=== PATIENT | female | born 1985 | race Hispanic/Latino ===

== ENCOUNTER 2024-07-14 02:41 | Emergency (ER) | payer SELFPAY ==
[2024-07-14 02:56] VITALS: BP 115/79; BMI 35.2
[2024-07-14 03:07] LABS: % Basophils 0.4 % (0-2); % Eosinophils 1.1 % (0-6); % Immature Granulocytes 0.3 % (0-0.5); % Lymphocytes 36.5 % (20.5-51.1); % Monocytes 5.8 % (1.7-9.3); % Neutrophils 55.9 % (42.2-75.2); Absolute Eosinophils 0.1 10^3/uL (0-0.7); Absolute Lymphocytes 2.7 10^3/uL (1.2-3.4); Absolute Monocytes 0.4 10^3/uL (0.1-0.6); Absolute Neutrophils 4.1 10^3/uL (1.4-6.5); Hematocrit 36.2 % (37.0-47.0); Hemoglobin 12.7 g/dL (12.0-16.0); Mean Corp Hgb Conc. 35.1 g/dL (33.0-37.0); Mean Corpuscular Hgb 31.5 pg (27.0-31.0); Mean Corpuscular Volume 89.8 fL (81.0-99.0); Mean Platelet Volume 8.8 fL (7.4-10.4); Nucleated Red Blood Cells % 0 %; Platelet Count 292 10^3/uL (130-400); Red Blood Cell Count 4.03 10^6/uL (4.20-5.40); Red Cell Dist. Width 14.2 % (11.5-14.5); White Blood Cell Count 7.4 10^3/uL (4.8-10.8)
[2024-07-14 03:26] LABS: ALT (SGPT) 22 U/L (0-35); AST (SGOT) 20 U/L (14-36); Albumin 4.7 g/dl (3.5-5.0); Alkaline Phosphatase 108 U/L (38-126); Blood Urea Nitrogen 9 mg/dl (7-17); Calcium 9.1 mg/dl (8.4-10.2); Carbon Dioxide 20 mmol/L (22-30); Chloride 113 mmol/L (98-107); Estimated Creatinine Clearance 58 ml/min; Glucose 109 mg/dl (70-99); Potassium 3.6 mmol/L (3.5-5.1); Sodium 143 mmol/L (135-145); Total Bilirubin 0.3 mg/dl (0.2-1.3); Total Protein 7.7 g/dl (6.3-8.2); eGFR > 60.00
[2024-07-14 03:34] LABS: HCG, Serum Qualitative Screen Negative
--- NOTE | 2024-07-14 03:42 | ED.GENMED ---
History of Present Illness
General
Chief Complaint: Crisis Evaluation
Source: patient and other (enterprise services manager)
Exam Limitations: other (Mentally ill Latvian-speaking)
Time Seen by Provider: 07/14/24 02:51
Nursing documentation reviewed up to this point in time: agreed with
History of Present Illness
History of Present Illness:
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
power operator, no alcohol no drugs does have a history of mental illness
From records from EMS patient was apparently discharged from [facility] under 302 today, discharged from a facility in [place] 4 months ago
Past History
Past History
ED Past Medical History: Psychiatric
Social History
Tobacco: Non-smoker
Alcohol: None
Drug: None
Personal:
Living: with family
Employment: Not employed
Review of Systems
Review of Systems
All Other Systems: Not applicable
Phy Exam
Physical Exam
Physical Exam:
Physical Exam
General: Small statured female cooperative does not appear intoxicated
Neck: No jaundice
Heart: s1/s2 regular rate and rhythm, no murmur. equal radial pulses.
Lungs: no acute respiratory distress. clear bilaterally
Abdomen: Not tender
Neuro: alert and oriented. Answer simple questions
Skin: no rash
Psychiatric: Flat affect cooperative
Extremities: no edema.
Course
Orders/Labs/Results
Orders:
Orders
07/14/24 02:48
Complete Blood Count/With Diff Urgent
Comprehensive Metabolic Panel Urgent
HCG, Serum Qualitative Screen Urgent
Comment: ADD ON
07/14/24 03:04
Add On- LAB Urgent
Tests Added?: hcg serum qual
Abnormal Lab Results
07/14/24
02:48
RBC 4.03 L 10^6/uL
(4.20-5.40)
Hct 36.2 L %
(37.0-47.0)
MCH 31.5 H pg
(27.0-31.0)
Chloride 113 H mmol/L
(98-107)
Carbon Dioxide 20 L mmol/L
(22-30)
Glucose 109 H mg/dl
(70-99)
07/14/24 02:48
07/14/24 02:48
Vital Signs
Initial and Last Documented VS:
Initial Vital Signs
Temp Pulse Resp BP Pulse Ox
98.4 F 83 15 115/79 97
07/14/24 02:56 07/14/24 02:56 07/14/24 02:56 07/14/24 02:56 07/14/24 02:56
Last Documented Vital Signs
Temp Pulse Resp BP Pulse Ox
98.4 F 83 15 115/79 97
07/14/24 02:56 07/14/24 02:56 07/14/24 02:56 07/14/24 02:56 07/14/24 02:56
MDM/Problems Addressed
Differential Diagnosis Includes:
Psychosis electrolyte abnormality does not appear toxic
Chronic conditions affecting care: Psychiatric illness
Acute Exacerbation and/or Progression of Chronic Illness: Psychiatric illness
*Pulse Oximetry
Patient hypoxic: no
*Critical Care Note
Total Time (30-74mins, 75-104mins- exclusive of procedures): Not Applicable
ED Attending Note
-
Portions of this chart may have been created with voice recognition software.� Occasional wrong word or��sound alike� substitutions may have occurred due to the inherent limitations of voice recognition software.
Discharge Plan
Departure
Patient Disposition: Psych Facility
Date of Disposition: 07/14/24
Time of Disposition: 04:45
Patient with high blood pressure during this ER visit?: No
Condition: Good
Discharge Problem:
Psychosis
Referrals:
UNKNOWN - PT DOES,NOT KNOW [Family Provider]
Interventions
Interventions:
*Risk Screen - Suicide Last Done: 07/14/24 02:56
*General Assessment Last Done: 07/14/24 02:56
*Neglect/Abuse Screening Last Done: 07/14/24 02:56
ED-Psychological Assessment Last Done: 07/14/24 02:56
Discharge Date and Time
Print Language: JAPANESE
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
[2024-07-14 18:40] VITALS: BP 98/67
[2024-07-15 07:09] VITALS: BP 110/74
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
--- NOTE | 2024-07-16 00:05 | EDRN ---
Pt states that [facility] [phone] should be contacted when she is ready to be discharged, [facility] will take pt home.
--- NOTE | 2024-07-16 15:51 | W.PN.UPDATE ---
Update Note
Progress Note Update
patient seen chart reviewed. spoke with a number of people concerning ms asencio. i initially had an ER staff who is fluent in macedonian translate for me to interview her again. much the same result that she has seen faces transforming and that has
disturbed her. she could give me no information as to what meds had been prescribed in her hosp except to say it made her tired and her body did not feel well. she told me she lives in one room with all of her four kids and her older kids help her
with the younger. she said she has no known medical illnesses. we reiterated much of the hx already obtained from her. she also gave me her son's cell and that of her nephew mr erica asencio [phone]. i called both but her son could not help
as his maori was poor. i did hear a baby in the background whom he said a family member was caring for. mr asencio is an adult and is patient's nephew the son of her sister. he said that his aunt acts 'normaL' but is disturbed by visions
of her mother and sister's faces transforming and by thought of the devil. 'she talks about weird things'. he said they live in a room within a larger house which contains many family members who help with the care of the kids. i also talked with
her cm ms stephan huitron [phone]. she is the one who filed the petition and she insists that ms asencio is a wonderful mother she just wanted her to get help. (i am not sure committing patient is the way to get ms asencio help). i next called
spencer lopez a pet house sitter [facility]. i have set up a meeting between her cm ms lopez and myself tomorrow at 1030 to figure out a way to help ms asencio without a 303 hearing. i don't think hosp at or [facility] where no one
speaks macedonian will be helpful. it will just frighten and overwhelm this patient. i have canceled the 303 but the 302 still has some time to go to allow us to plan for patient's care. she is breast feeding so that is a consideration in prescribing
for her. note patient has been peaceful and cooperative. she says that transforming faces do not happen here in the er. it is only at home.
[2024-07-16 17:30] VITALS: BP 112/79
[2024-07-17 06:33] VITALS: BP 104/81
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
[2024-07-17] MEDS: ABILIFY 2 MG PO (13:24)
[2024-07-17 20:33] VITALS: BP 116/84
[2024-07-18] MEDS: ABILIFY 2 MG PO (08:42)
--- NOTE | 2024-07-18 18:12 | W.PN.UPDATE ---
Update Note
Progress Note Update
Pt seen using interpreting service as she is only Niuean speaking. Seems to be more coherent than Dr. Alfaro's first note. Appears sad, seems mostly concerned about caregiving arrangments for her chidlren, which is likely quite ligitamate. She
has now had two doses of Abilify 2 mg. and tolerates it well without dystonia or akathisia. Perhaps mild sedation.
My understanding is Dr. Alfaro is trying to arrange voluntary treatment at [facility], although pt. did not seem aware of this. She denies seeing things now (had been) and denies auditory hallucinations. No delusoinal thougths about her children
and denies any intentions of self-harm. Eating dinner; has some appetite.
Will continue treatment unchanged. Labs were unremarkable and VSS.
[2024-07-18 20:10] VITALS: BP 104/79
--- NOTE | 2024-07-18 23:00 | EDRN ---
Report received, patient is resting at this time, safe environment maintained, will continue to monitor
--- NOTE | 2024-07-19 02:00 | EDRN ---
Patient is sleeping while observed, will continue to monitor patient, safe environment maintained
[2024-07-19] MEDS: ABILIFY 2 MG PO (08:30)
[2024-07-19 12:58] VITALS: BP 115/79
--- NOTE | 2024-07-19 14:09 | EDRN ---
Pt just received her lunch tray and is eating at this time.
--- NOTE | 2024-07-19 14:31 | EDRN ---
Psychiatrist in to see pt and just told this RN that she is to go to [facility] tomorrow.
--- NOTE | 2024-07-19 15:18 | W.PN.UPDATE ---
Update Note
Progress Note Update
Pt seen in crisis room with use of suit attendant service. Communication was difficult in both directions. She remains concerned about her children the oldest being 14 and who is caring for them. Not with her boyfriend anymore, but he is financially
supportive. In reviewing records more thoroughly, she had just been discharged from [facility] on Zyprexa 5 mg. She had a psychiatric hospitalization in [place] a year ago. Was psychotic which seems to be improving as best as I can tell. She
said she no longer sees visions and no longer believes her children are possessed (or something of that sort).
Is calm; appears sad. Polite. The suit attendant did not understand a word she used and asked her to explain which apparently she did not do.
She complains of back pain from her epidural and I alerted the nurse who will see about having this evaluated.
She did not get to order dinner (again, possibly due to language barrier) and I told security what she wanted to eat.
Crisis confirmed she has critical access hospital funding. Dr. Alfaro confirmed with me that she will try to arrange for placement at [facility] tomorrow.
Will continue her on Abilify 2 mg. as she seems to be improving and tolerating it well.
DDx is Psychosis vs. underlying persistent mental illness, such as schizophrenia.
[2024-07-20] MEDS: ABILIFY 2 MG PO (08:29)
[2024-07-20 08:46] VITALS: BP 101/74
--- NOTE | 2024-07-20 13:45 | ED.CRISIS ---
ED Crisis Note
ED Crisis Note
Assessment/Plan:
I spoke to crisis. He is here under 201. Crisis still looking into the [place]/residential type of facility.
[2024-07-21 03:00] VITALS: BP 115/74
[2024-07-21] MEDS: ABILIFY 2 MG PO (08:21)
[2024-07-21 11:11] VITALS: BP 109/76
[2024-07-21 19:01] VITALS: BP 116/79
[2024-07-21] MEDS: TYLENOL 650 MG PO (20:27)
[2024-07-22 04:45] VITALS: BP 105/69
[2024-07-22 08:01] VITALS: BP 118/76
[2024-07-22] MEDS: ABILIFY 2 MG PO (08:26)
--- NOTE | 2024-07-22 08:56 | ED.CRISIS ---
ED Crisis Note
ED Crisis Note
Subjective:
38-year-old female with psychosis, now under 201, voluntary.
Objective:
No acute distress, eating and sitting comfortably.
Assessment/Plan:
I spoke to crisis. She is here under 201. Crisis looking into residential type of facility.
[2024-07-22] MEDS: ABILIFY 3 MG PO (13:17)
--- NOTE | 2024-07-22 14:23 | W.PN.UPDATE ---
Update Note
Progress Note Update
patient seen chart reviewed. spoke with patient diakon worker ms campo . lead systems engineer function by staff member in the ER. patient is tolerating the abillify. she had some mild abdominal aches but will let us know if this persists or worsens. otherwise
she feels it is helping her. she had just emerged from the shower. her eyes were a little bloodshot ?soap in her eyes agrees to use some saline eye drops. have increased abilify to 5 mg. discussed with patient that the [facility] has accepted her for
admission and that will be this coming saturday. she agrees to go. it will be a short stay and week or perhaps a little more just to make sure she is tolerating the abilify and feeling a bit more stable.
--- NOTE | 2024-07-22 17:32 | EDRN ---
Spoke with Nneka Heredia from [facility] who states pt has a bed at [facility] at [facility] in [place]. To be admitted there Saturday07/24/24.
Spoke with Gudelia from [facility] for transportation arrangements. Pt will be picked up from [facility] at 0830 on Monday 07/24 for transport to [facility].
Ambulance Authorization [id number] reported to Acute Care transport.
[2024-07-22 19:17] VITALS: BP 109/74
[2024-07-23 06:27] VITALS: BP 112/72
[2024-07-23] MEDS: ABILIFY 5 MG PO (08:11)
[2024-07-23 12:00] VITALS: BP 118/75
[2024-07-23 18:40] VITALS: BP 111/78
[2024-07-24 08:00] VITALS: BP 120/84
[2024-07-24] MEDS: ABILIFY 5 MG PO (08:00)
== END 2024-07-24 08:50 ==
LOC: EMR 02:41
PROVIDERS: EMERGENCY PHYSICIAN Emergency Medicine; OTHER PHYSICIAN Psychiatry & Neurology Psychiatry
DX: F29 Unspecified psychosis not due to a substance or known physiological condition (principal); F20.0 Paranoid schizophrenia; R44.1 Visual hallucinations; R45.850 Homicidal ideations; Z91.148 Patient's other noncompliance with medication regimen for other reason
CPT/HCPCS: 80053; 84703; 85025; 99285